=== PATIENT | female | born 1990 | race Caucasian/White ===

== ENCOUNTER 2017-11-05 12:10 | Inpatient (IN) | payer MEDICAID ==
[2017-11-05 12:42] LABS: % BASOPHILS 0.4 % (0.0-2.0); % EOSINOPHILS 0.8 % (0.0-5.0); % LYMPHOCYTES 13.9 % (20.0-50.0); % MONOCYTES 5.9 % (2.0-10.0); EOSINOPHILE ABSOLUTE 0.1 Th/cmm (0.1-0.4); HEMATOCRIT 35.5 % (41.0-60); HEMOGLOBIN 12.1 gm/dL (12-16); LYMPHOCYTE ABSOLUTE 1.5 Th/cmm (1.5-3.0); MEAN CORPUSCULAR HEMOGLOBIN 29.4 pg (27.0-31.0); MEAN CORPUSCULAR HGB CONC 34.2 pg (28.0-36.0); MEAN PLATELET VOLUME 8.5 fl; MONOCYTE ABSOLUTE 0.7 Th/cmm (0.3-1.0); NEUTROPHILE ABSOLUTE 8.8 Th/cmm (1.8-8.0); PLATELET COUNT 304 Th/cmm (150-400); RED BLOOD COUNT 4.13 Mil/cmm (3.80-5.10); RED CELL DISTRIBUTION WIDTH 13.1 % (11.5-20.0); WHITE BLOOD COUNT 11.1 Th/cmm (4.8-10.8)
[2017-11-05 13:06] LABS: ACETAMINOPHEN < 10.0 ug/mL (10.0-30.0); ALB/GLOB RATIO 1.8 (1.0-1.8); ALBUMIN 4.5 gm/dL (3.7-5.3); ALKALINE PHOSPHATASE 71 U/L (34-104); ANION GAP 9.4 (7.0-16.0); BILIRUBIN,TOTAL 0.4 mg/dL (0.3-1.0); BUN - UREA NITROGEN 5 mg/dL (7-25); CALCIUM SERUM 9.5 mg/dL (8.6-10.3); CARBON DIOXIDE 26.5 mEq/L (21.0-31.0); CHLORIDE 104 mEq/L (98-107); CREATININE - SERUM 0.6 mg/dL (0.6-1.2); GFR AFRICAN-AMERICAN > 60.0 ml/min (>90); GFR NON AFRICAN-AMERICAN > 60.0 ml/min; GLUCOSE 112 mg/dL (70-105); SALICYLATES (ASPIRIN) < 25.0 mg/L (30.0-100.0); SGOT 23 U/L (13-39); SGPT/ALT 30 U/L (7-52); SODIUM SERUM 137 mEq/L (136-145)
[2017-11-05 13:08] LABS: POTASSIUM SERUM 2.9 mEq/L (3.5-5.1)
--- NOTE | 2017-11-05 13:09 | ED Physician Chart ---
ED Chief Complaint/HPI - Patient Information Date Seen:: 11/05/17 Time Seen:: 11:45 Chief Complaint:: overdose History of Present Illness:: Patient seen shortly after her arrival. Patient's father called 911. An unknown time before arrival patient took an unknown number of her medications. She denies abdominal pain. Patient vomited a few times after taking the pills this morning and had a large volume emesis in the emergency department shortly after arrival. She states she has mild chest pain. Patient states that she sometimes hears voices. Sometimes the voices are people saying negative things about her. Allergies:: Allergies Allergy/AdvReac Type Severity Reaction Status Date / Time No Known Allergies Allergy Verified 11/05/17 12:42 Vitals:: Vital Signs - 8 hr 11/05/17 11/05/17 12:41 12:42 Temp 98 F 98.6 F HR 98 75 RR 16 16 BP 104/77 130/72 O2 Sat % 104 98 Historian:: Patient Review:: Nurse's Note Reviewed ED Review of Systems - Review of Systems General/Constitutional: No fever, No chills Skin: No skin lesions Head: No headache Eyes: No loss of vision ENT: No earache Neck: No neck pain Cardio Vascular: Chest pain Pulmonary: No SOB GI: No nausea, No vomiting, No diarrhea Musculoskeletal: No bone or joint pain Endocrine: No polyuria Psychiatric: Prior psych history, Depression, Suicidal ideation ED Past Medical History - Past Medical History Past Medical History: Other (depression; bipolar) Family History: Heart disease Social History: Smoker, No Alcohol, Lives With Parents Surgical History: None Psychiatricy History: Depression, Bipolar Medication: Reviewed Family Medical History - Family Member Mother History Unknown: Yes Ethnicity: Living Status: Still Living ED Physical Exam - Physical Examination General/Constitutional: Well-developed, well-nourished, Alert, No distress Head: Atraumatic Eyes: Lids, conjuctiva normal, PERRL Other Eyes comments:: Pupils about 3 mm Skin: Nl inspection, No rash, No skin lesions, No ecchymosis ENMT: External ears, nose nl, TM canals nl, Nasal exam nl, Lips, teeth, gums nl , Oropharynx nl, Tonsils nl Neck: No nuchal rigidity Respiratory: Nl effort/Exclusion, Clear to Auscultation, No Wheeze/Rhonchi/Rales Cardio Vascular: RRR, No murmur, gallop, rubs GI: No tenderness/rebounding/guarding, No organomegaly : No CVA tenderness Extremities: Normal digits & nails Neuro/Psych: Alert/oriented ED Labs/Radiology/EKG Results - Lab Results Results: Laboratory Tests 11/05/17 12:30 WBC 11.1 H RBC 4.13 Hgb 12.1 Hct 35.5 L MCV 86.0 MCH 29.4 MCHC Differential 34.2 RDW 13.1 Plt Count 304 MPV 8.5 Neutrophils % 79.0 Lymphocytes % 13.9 L Monocytes % 5.9 Eosinophils % 0.8 Basophils % 0.4 Laboratory Results - last 24 hr 11/05/17 11/05/17 11/05/17 12:30 12:30 12:30 WBC 11.1 H RBC 4.13 Hgb 12.1 Hct 35.5 L MCV 86.0 MCH 29.4 MCHC Differential 34.2 RDW 13.1 Plt Count 304 MPV 8.5 Neutrophils % 79.0 Lymphocytes % 13.9 L Monocytes % 5.9 Eosinophils % 0.8 Basophils % 0.4 Sodium 137 Potassium 2.9 L* Chloride 104 Carbon Dioxide 26.5 Anion Gap 9.4 BUN 5 L Creatinine 0.6 Est GFR ( Amer) > 60.0 Est GFR (Non-Af Amer) > 60.0 BUN/Creatinine Ratio 8.3 Glucose 112 H Calcium 9.5 Total Bilirubin 0.4 AST 23 ALT 30 Alkaline Phosphatase 71 Total Protein 7.0 Albumin 4.5 Globulin 2.5 Albumin/Globulin Ratio 1.8 Salicylates < 25.0 L Acetaminophen < 10.0 L Carbamazepine < 2.0 L Ethyl Alcohol < 10 - EKG Interpretations Rate & Rhythm: normal sinus rhythm with a rate of 66 [place]: normal Comments:: T wave changes ED Assessment - Assessment General Assessment: At 1424 patient had an apparent seizure. She was noted to be nonresponsive, slightly cyanotic, arms extended and drooling of a slight amount of blood tinged saliva. She was poorly responsive after the seizure. I spoke to Dr. Tejeda by phone who said he will admit the patient if Dr. Colorado can consult. Dr. Colorado said he can not see the patient until tomorrow afternoon or evening. I spoke to Dr. Tejeda again at about 1535 and he agreed to be the admitting physician. ED Septic Shock - . Is Septic Shock (SBP<90, OR Lactate>4 mmol\L) present?: No - <6hrs of presentation: Vital Signs: Vital Signs - 8 hr 11/05/17 11/05/17 12:41 12:42 Temp 98 F 98.6 F HR 98 75 RR 16 16 BP 104/77 130/72 O2 Sat % 104 98 ED Reassessment (Disposition) - Reassessment Reassessment Condition:: Unchanged - Diagnosis Diagnosis:: Medication overdose; hypokalemia; anemia; seizure - Patient Disposition Admitted to:: ICU Condition at Disposition:: Stable, Unchanged ED Discharge Plan - Patient Disposition Instructions: Psychosis
[2017-11-05] MEDS ORDERED: Potassium Chloride 20 mEq ER Tab PO ONE ×2 (13:14→13:50)
[2017-11-05] MEDS ORDERED: Levetiracetam 1000mg/100mL 1,000 MG/100 ML BAG IV ONE (15:15)
[2017-11-05] MEDS ORDERED: Levetiracetam 500 mg/5mL 5mL Vial IV ONE (15:19)
[2017-11-05 17:42] LABS: CANNABINOID THC POSITIVE (NEGATIVE)
[2017-11-05 17:43] LABS: AMPHETAMINE URINE NEGATIVE (NEGATIVE); BARBITURATES URINE NEGATIVE (NEGATIVE); BENZODIAZEPINES QUAL URINE POSITIVE (NEGATIVE); COCAINE METABOLITE QUAL URINE NEGATIVE (NEGATIVE); METHADONE URINE NEGATIVE (NEGATIVE); METHAMPHETAMINES QUAL URINE NEGATIVE (NEGATIVE); OPIATES (MORPHINE) QUAL. URINE NEGATIVE (NEGATIVE); PHENCYCLIDINE (PCP) URINE NEGATIVE (NEGATIVE); TRICYCLICS (TCA) QUAL. URINE NEGATIVE (NEGATIVE)
[2017-11-06] MEDS ORDERED: Haloperidol Lactate 5 mg/mL 1mL Vial IM ONE (03:19)
[2017-11-06 04:59] LABS: HEMATOCRIT 34.3 % (41.0-60); HEMOGLOBIN 11.6 gm/dL (12-16); MEAN CELL VOLUME 87.3 fl (81-100); MEAN CORPUSCULAR HEMOGLOBIN 29.5 pg (27.0-31.0); MEAN CORPUSCULAR HGB CONC 33.7 pg (28.0-36.0); MEAN PLATELET VOLUME 8.7 fl; PLATELET COUNT 256 Th/cmm (150-400); RED BLOOD COUNT 3.92 Mil/cmm (3.80-5.10)
[2017-11-06 05:05] LABS: WHITE BLOOD COUNT 13.6 Th/cmm (4.8-10.8)
[2017-11-06 05:20] LABS: ANION GAP 12.9 (7.0-16.0); BUN - UREA NITROGEN 7 mg/dL (7-25); CALCIUM SERUM 9.1 mg/dL (8.6-10.3); CARBON DIOXIDE 24.3 mEq/L (21.0-31.0); CHLORIDE 107 mEq/L (98-107); CREATININE - SERUM 0.7 mg/dL (0.6-1.2); GFR AFRICAN-AMERICAN > 60.0 ml/min (>90); GFR NON AFRICAN-AMERICAN > 60.0 ml/min; GLUCOSE 74 mg/dL (70-105); POTASSIUM SERUM 3.2 mEq/L (3.5-5.1); SODIUM SERUM 141 mEq/L (136-145)
[2017-11-06 05:50] LABS: MANUAL DIFF REQUIRED? YES
[2017-11-06 05:51] LABS: BAND NEUTROPHILE 2 % (0-10); LYMPHOCYTE 10 % (20-50); MONOCYTE 3 % (2-10); NEUTROPHILS 85 % (40-80); TOTAL CELLS COUNTED 100
[2017-11-06] MEDS ORDERED: Potassium Chloride 20 mEq ER Tab PO ONE (08:36)
--- NOTE | 2017-11-06 08:57 | Diagnostic Imaging Report ---
CT scan of the brain without contrast History: Seizure Total DLP equals 566 CTDI equals 32.2 Findings: Axial sections were obtained from the base of the skull to the vertex. There is a normal ventricular system size. No focal parenchymal lesions are seen. No evidence of any mass effect or shift of midline structures. No extra-axial masses or abnormal fluid collections. Impression: Negative examination.
--- NOTE | 2017-11-06 09:00 | History & Physical ---
ADMIT DATE: 11/05/2017 CHIEF COMPLAINT: Drug overdose. HISTORY OF PRESENT ILLNESS: This is a 27-year-old female with underlying history of mental and seizure disorders, was brought into the Emergency Room by paramedics for evaluation of the partial drug overdose. While the patient was being evaluated in the Emergency Room, had seizures. Per Emergency Room physician, the patient was on IV seizure medications . At the time of evaluation patient was more awake, alert, and able to communicate fine. The patient denies any chest pain. No shortness of breath or dizziness. No headache, no fever, no chills. The patient's family was available in the Emergency Room who are providing most of the history. Per family, the patient does have underlying history of seizures and takes seizure medications. The patient also had underlying somatic disorder, unknown about the proper diagnosis. The patient lives with father who called 911 after he saw the patient in altered mental status. PAST MEDICAL HISTORY: Seizure disorder, mental disorder. PAST SURGICAL HISTORY: None reported. SOCIAL HISTORY: Lives at home with father. Denies any alcohol or tobacco use. CURRENT MEDICATIONS: As per medication reconciliation. ALLERGIES: No known drug allergies. REVIEW OF SYSTEMS: As per HPI. A 12-point system review appears negative. PHYSICAL EXAMINATION: VITAL SIGNS: Temperature 98.6, pulse 75, respirations 16, blood 130/72, and 90% on room air. HEART: S1, S2 normal. LUNGS: Clear. ABDOMEN: Soft, nontender, no guarding. NEUROLOGIC: The patient is awake, alert, confused. Moves all extremities. Able to follow commands. AVAILABLE LABORATORY DATA: Reviewed. ASSESSMENT: 1. Seizure disorders. 2. Mental disorder. PLAN: The patient was on IV Keppra. Neurology was consulted. Seizure precautions was given. Admitted to ICU for close observation. Psych was consulted. Home medications were reconciled. Discussed with family regarding the patient's clinical condition and plan of care discussed with nursing staff. JOB# [id number]
--- NOTE | 2017-11-06 17:25 | General Progress Note ---
Subjective - Review of Systems Service Date: 11/06/17 Subjective: Patient seems very agitated Psych ordered prn restrains Sitter was at the bedside No reported seizure since am Objective - Results Result Diagrams: 11/06/17 04:30 11/06/17 04:30 Recent Labs: Laboratory Last Values WBC 13.6 Th/cmm (4.8-10.8) H D 11/06/17 04:30 RBC 3.92 Mil/cmm (3.80-5.10) 11/06/17 04:30 Hgb 11.6 gm/dL (12-16) L 11/06/17 04:30 Hct 34.3 % (41.0-60) L 11/06/17 04:30 MCV 87.3 fl (81-100) 11/06/17 04:30 MCH 29.5 pg (27.0-31.0) 11/06/17 04:30 MCHC Differential 33.7 pg (28.0-36.0) 11/06/17 04:30 RDW 13.0 % (11.5-20.0) 11/06/17 04:30 Plt Count 256 Th/cmm (150-400) 11/06/17 04:30 MPV 8.7 fl 11/06/17 04:30 Neutrophils % CHAR CONVEYOR TENDER CELLAR 11/06/17 04:30 Band Neutrophils % 2 % (0-10) 11/06/17 04:30 Lymphocytes % CHAR CONVEYOR T[employer]ER CELLAR 11/06/17 04:30 Monocytes % CHAR CONVEYOR TENDER CELLAR 11/06/17 04:30 Eosinophils % CHAR CONVEYOR TENDER CELLAR 11/06/17 04:30 Basophils % CHAR CONVEYOR TENDER CELLAR 11/06/17 04:30 Neutrophils (Manual) 85 % (40-80) H 11/06/17 04:30 Lymphocytes 10 % (20-50) L 11/06/17 04:30 Monocytes 3 % (2-10) 11/06/17 04:30 Sodium 141 mEq/L (136-145) 11/06/17 04:30 Potassium 3.2 mEq/L (3.5-5.1) L 11/06/17 04:30 Chloride 107 mEq/L (98-107) 11/06/17 04:30 Carbon Dioxide 24.3 mEq/L (21.0-31.0) 11/06/17 04:30 Anion Gap 12.9 (7.0-16.0) 11/06/17 04:30 BUN 7 mg/dL (7-25) 11/06/17 04:30 Creatinine 0.7 mg/dL (0.6-1.2) 11/06/17 04:30 Est GFR ( Amer) > 60.0 ml/min (>90) 11/06/17 04:30 Est GFR (Non-Af Amer) > 60.0 ml/min 11/06/17 04:30 BUN/Creatinine Ratio 10.0 11/06/17 04:30 Glucose 74 mg/dL (70-105) 11/06/17 04:30 Calcium 9.1 mg/dL (8.6-10.3) 11/06/17 04:30 Total Bilirubin 0.4 mg/dL (0.3-1.0) 11/05/17 12:30 AST 23 U/L (13-39) 11/05/17 12:30 ALT 30 U/L (7-52) 11/05/17 12:30 Alkaline Phosphatase 71 U/L (34-104) 11/05/17 12:30 Total Protein 7.0 gm/dL (6.0-8.3) 11/05/17 12:30 Albumin 4.5 gm/dL (3.7-5.3) 11/05/17 12:30 Globulin 2.5 gm/dL 11/05/17 12:30 Albumin/Globulin Ratio 1.8 (1.0-1.8) 11/05/17 12:30 Urine Test NEGATIVE 11/05/17 12:30 Salicylates < 25.0 mg/L (30.0-100.0) L 11/05/17 12:30 Urine Opiates Screen NEGATIVE (NEGATIVE) 11/05/17 16:40 Urine Methadone Screen NEGATIVE (NEGATIVE) 11/05/17 16:40 Acetaminophen < 10.0 ug/mL (10.0-30.0) L 11/05/17 12:30 Ur Barbiturates Screen NEGATIVE (NEGATIVE) 11/05/17 16:40 Carbamazepine < 2.0 ug/ml (4.0-12.0) L 11/05/17 12:30 Ur Tricyclics Screen NEGATIVE (NEGATIVE) 11/05/17 16:40 Ur Phencyclidine Scrn NEGATIVE (NEGATIVE) 11/05/17 16:40 Amphetamines Screen NEGATIVE (NEGATIVE) 11/05/17 16:40 U Methamphetamines Scrn NEGATIVE (NEGATIVE) 11/05/17 16:40 U Benzodiazepines Scrn POSITIVE (NEGATIVE) H 11/05/17 16:40 U Cocaine Metab Screen NEGATIVE (NEGATIVE) 11/05/17 16:40 U Cannabinoids Screen POSITIVE (NEGATIVE) H 11/05/17 16:40 Ethyl Alcohol < 10 mg/dL (0-10) 11/05/17 12:30 - Physical Exam Vitals and I&O: Vital Signs Temp 97.2 F 11/06/17 14:00 Pulse 84 11/06/17 15:00 Resp 21 11/06/17 15:00 BP 130/67 11/06/17 15:00 Pulse Ox 100 11/06/17 15:00 Intake & Output 11/05/17 11/06/17 11/06/17 18:59 06:59 18:59 Intake Total 250 Balance 250 Weight (lbs) 102.058 kg Intake: Oral 250 Active Medications: Current Medications Clonazepam (Klonopin) 0.5 mg PO BID [facility] Stop: 01/04/18 22:29 Last Admin: 11/06/17 09:31 Dose: 0.5 mg Levetiracetam (Keppra) 500 mg PO BID [facility] Stop: 01/05/18 08:59 Last Admin: 11/06/17 09:30 Dose: 500 mg Lorazepam (Ativan) 1 mg IVP Q4HR PRN; Protocol PRN Reason: Seizures Stop: 01/04/18 22:48 Oxcarbazepine (Trileptal) 600 mg PO BID [facility] Stop: 01/04/18 22:29 Last Admin: 11/06/17 11:37 Dose: 600 mg Cardiovascular: Regular rate Lungs: Clear to auscultation Assessment/Plan - Problem List Patient Problems: All Active Problems SUICIDAL IDEATION WITH MEDICATION EXCESS (Acute) - Assessment Assessment: Seizure Mental angelic disorder Hypokalemia - Plan Plan: Awaiting Neurology and Psych input Continue current treatment K replacement
--- NOTE | 2017-11-06 22:19 | Consultation ---
DATE OF CONSULTATION: 11/06/2017 HISTORY OF PRESENT ILLNESS: A 27-year-old female with history of mental illness. States she was depressed, fight with father, overdosed on tablets including Prozac, took an unknown number of medications. She has numerous medications. She had a large volume emesis in the Emergency Department, also attesting to voices and sometimes stating the voices say negative things about her. On [id number], the patient is asking to go home. She is a poor historian, seems to be responding somewhat to internal stimuli. PAST PSYCHIATRIC HISTORY: She states that she has attempted suicide in the past. PAST MEDICAL HISTORY: She is currently in the ICU. MEDICATIONS: Noted to include Prozac, BuSpar, Zyprexa. SOCIAL HISTORY: Living with father in [place]. Not . No kids, no drugs, no alcohol, no tobacco. MENTAL STATUS EXAMINATION: Unkempt, in restraints, stated age. Fair eye contact. Speech, decreased content. The patient is somewhat disorganized on exam, status post a suicide effort. No HI. No overt psychotic symptoms. Verbalize, although she does appear to be responding to internal stimuli, poor insight and judgment. PROVISIONAL DIAGNOSES: Mood, unspecified; rule out major depression versus bipolar affective disorder. Under medical it seems she has a seizure disorder. The patient is status post serious overdose effort. Under medical, please see full H and P. Dr. Tejeda is seeing this patient. Per the H and P, she had a partial drug overdose, seizure history. The details of the overdose are unclear. PLAN: We will hold all medications related to her overdose. It seems she overdosed on Prozac, possibly BuSpar, possibly Zyprexa. We will continue the seizure medications including Keppra. I am not sure if she is on Trileptal for seizures or for psych. However, it is unclear if she overdosed on these. It seems she may have overdosed on serotonergic agents only. We will also continue low dose Klonopin at 0.5 mg twice daily. We will hold for example, BuSpar, Prozac, and Zyprexa. Currently, the patient is on a 5150 hold, continue hold. [facility]# [id number]
[2017-11-07 10:45] LABS: % BASOPHILS 0.2 % (0.0-2.0); % EOSINOPHILS 0.9 % (0.0-5.0); % LYMPHOCYTES 8.7 % (20.0-50.0); % MONOCYTES 5.9 % (2.0-10.0); % NEUTROPHILS 84.3 % (40.0-80.0); EOSINOPHILE ABSOLUTE 0.1 Th/cmm (0.1-0.4); HEMATOCRIT 33.9 % (41.0-60); HEMOGLOBIN 11.3 gm/dL (12-16); LYMPHOCYTE ABSOLUTE 0.8 Th/cmm (1.5-3.0); MEAN CELL VOLUME 87.9 fl (81-100); MEAN CORPUSCULAR HEMOGLOBIN 29.4 pg (27.0-31.0); MEAN CORPUSCULAR HGB CONC 33.5 pg (28.0-36.0); MEAN PLATELET VOLUME 8.5 fl; MONOCYTE ABSOLUTE 0.6 Th/cmm (0.3-1.0); NEUTROPHILE ABSOLUTE 7.9 Th/cmm (1.8-8.0); PLATELET COUNT 232 Th/cmm (150-400); RED BLOOD COUNT 3.85 Mil/cmm (3.80-5.10); RED CELL DISTRIBUTION WIDTH 13.3 % (11.5-20.0)
[2017-11-07 10:47] LABS: WHITE BLOOD COUNT 9.4 Th/cmm (4.8-10.8)
[2017-11-07 10:55] LABS: ALB/GLOB RATIO 1.7 (1.0-1.8); ALKALINE PHOSPHATASE 65 U/L (34-104); ANION GAP 10.9 (7.0-16.0); BILIRUBIN,TOTAL 0.5 mg/dL (0.3-1.0); BUN - UREA NITROGEN 10 mg/dL (7-25); CALCIUM SERUM 9.1 mg/dL (8.6-10.3); CARBON DIOXIDE 26.4 mEq/L (21.0-31.0); CHLORIDE 103 mEq/L (98-107); CREATININE - SERUM 0.6 mg/dL (0.6-1.2); GFR AFRICAN-AMERICAN > 60.0 ml/min (>90); GFR NON AFRICAN-AMERICAN > 60.0 ml/min; GLUCOSE 85 mg/dL (70-105); MAGNESIUM 2.3 mg/dL (1.9-2.7); POTASSIUM SERUM 3.3 mEq/L (3.5-5.1); SGOT 42 U/L (13-39); SGPT/ALT 35 U/L (7-52); SODIUM SERUM 137 mEq/L (136-145); TOTAL PROTEIN,SERUM 6.3 gm/dL (6.0-8.3)
[2017-11-07 17:20] LABS: URINE MICROSCOPIC INDICATED? YES; URINE SOURCE FOLEY PORT
[2017-11-07 17:21] LABS: URINE BILIRUBIN SMALL (NEGATIVE); URINE BLOOD LARGE (NEGATIVE); URINE GLUCOSE (UA) NEGATIVE (NEGATIVE); URINE KETONE 15 mg/dL (NEGATIVE); URINE LEUKOCYTE ESTERASE NEGATIVE (NEGATIVE); URINE NITRATE POSITIVE (NEGATIVE); URINE PROTEIN 100 mg/dL (NEGATIVE)
[2017-11-07 17:31] LABS: URINE CLARITY HAZY (CLEAR); URINE COLOR DARK YELLOW
[2017-11-07 17:32] LABS: URINE BACTERIA MANY /hpf (NONE SEEN); URINE EPITHELIAL CELLS OCCASIONAL /lpf (FEW); URINE RBC 50-100 /hpf (0-5)
--- NOTE | 2017-11-07 21:35 | Consultation ---
DATE OF CONSULTATION: 11/07/2017 HISTORY OF PRESENT ILLNESS: A 27-year-old female with history of mental illness on multiple psychotropics, overdosed on multiple psychotropics, currently in the ICU, still somewhat disoriented, but more oriented versus yesterday. She knows her name. She knows she is in the hospital. She knows the year and the month. She has a general idea why she is here, still in restraints, still agitated, still seems to be responding to internal stimuli. PAST PSYCHIATRIC HISTORY: Status post suicide effort. MENTAL STATUS EXAMINATION: Unkempt, in restraints, better oriented, status post suicide effort, seems to be responding to internal stimuli. PROVISIONAL DIAGNOSES: Mood, unspecified; major depression versus bipolar. RECOMMENDATIONS AND PLAN: Continue to hold all medications. We will initiate a 14-day hold. JOB# [id number]
--- NOTE | 2017-11-07 21:54 | Consultation ---
DATE OF CONSULTATION: 11/07/2017 NEUROLOGY CONSULT HISTORY OF PRESENT ILLNESS: A 27-year-old female. The patient with history of seizure. The patient at the moment on Keppra and oxcarbazepine. No seizures while here. The patient also at home overdosed on tablets. The patient seen by psychiatrist. PAST MEDICAL HISTORY: 1. Depression. 2. Question of bipolar. 3. History of seizure. REVIEW OF SYSTEMS: On questioning her, no headache. The patient is somewhat confused at times, but able to answer questions. No chest pain. No shortness of breath. SOCIAL HISTORY: She lives with her father in . She said she does not smoke or drink. No drugs. PHYSICAL EXAMINATION: VITAL SIGNS: Temperature 98.4, blood pressure 130/70, pulse is 76. NECK: Supple. No bruits. HEART: Sounds S1, S2. LUNGS: Clear. NEUROLOGIC: The patient is awake, alert. She answers questions. She was able to tell me where she lives. She is able to name simple objects. She knew what day, what month. CRANIAL: Pupils react to light. Full eye movement. No facial weakness. MOTOR: She will lift both arms up. Legs equal. Reflex is 1+. INVESTIGATIONS: CT scan of the head is negative. IMPRESSION: 1. Seizure. Continue present medications. 2. History of depression, bipolar. 3. Overdose. The patient's management as per Psychiatry. Neurology is clear to transfer to a psychiatric facility. JOB# [id number]
[2017-11-08] MEDS: Potassium Chloride Elixir 20 mEq /15 mL UDC GT SCH (09:36)
--- NOTE | 2017-11-08 22:51 | Progress Notes ---
DATE: 11/08/2017 SUBJECTIVE: A 27-year-old female, overdosed on medications, currently seems more stable, out of the ICU, on the Med-Surg unit. The patient notes her mood is "better," sleeping well, and eating well. Some hallucinations noted. She has been verbalizing with staff. She is currently on Trileptal and Keppra. She had been on Zyprexa, Klonopin, and Prozac previously. No SI and no HI. MENTAL STATUS EXAMINATION: More engaged, fairly linear. No SI, no HI. She seems to be having some perceptual disturbances. PROVISIONAL DIAGNOSIS: Bipolar. RECOMMENDATIONS AND PLAN: The patient remains on a hold. We will restart medications. [facility]# [id number]
[2017-11-09 05:28] LABS: % BASOPHILS 0.7 % (0.0-2.0); % EOSINOPHILS 5.1 % (0.0-5.0); % LYMPHOCYTES 21.5 % (20.0-50.0); % MONOCYTES 6.9 % (2.0-10.0); % NEUTROPHILS 65.8 % (40.0-80.0); EOSINOPHILE ABSOLUTE 0.3 Th/cmm (0.1-0.4); HEMATOCRIT 36.3 % (41.0-60); HEMOGLOBIN 12.1 gm/dL (12-16); LYMPHOCYTE ABSOLUTE 1.4 Th/cmm (1.5-3.0); MEAN CELL VOLUME 87.3 fl (81-100); MEAN CORPUSCULAR HEMOGLOBIN 29.2 pg (27.0-31.0); MEAN CORPUSCULAR HGB CONC 33.4 pg (28.0-36.0); MEAN PLATELET VOLUME 8.3 fl; MONOCYTE ABSOLUTE 0.5 Th/cmm (0.3-1.0); NEUTROPHILE ABSOLUTE 4.5 Th/cmm (1.8-8.0); PLATELET COUNT 254 Th/cmm (150-400); RED BLOOD COUNT 4.16 Mil/cmm (3.80-5.10); RED CELL DISTRIBUTION WIDTH 13.3 % (11.5-20.0)
[2017-11-09 05:29] LABS: WHITE BLOOD COUNT 6.7 Th/cmm (4.8-10.8)
[2017-11-09 05:47] LABS: ALB/GLOB RATIO 1.5 (1.0-1.8); ALBUMIN 3.8 gm/dL (3.7-5.3); ALKALINE PHOSPHATASE 61 U/L (34-104); ANION GAP 8.8 (7.0-16.0); BILIRUBIN,TOTAL 0.5 mg/dL (0.3-1.0); BUN - UREA NITROGEN 8 mg/dL (7-25); CALCIUM SERUM 9.1 mg/dL (8.6-10.3); CARBON DIOXIDE 27.9 mEq/L (21.0-31.0); CHLORIDE 101 mEq/L (98-107); CREATININE - SERUM 0.5 mg/dL (0.6-1.2); GFR AFRICAN-AMERICAN > 60.0 ml/min (>90); GFR NON AFRICAN-AMERICAN > 60.0 ml/min; GLUCOSE 80 mg/dL (70-105); POTASSIUM SERUM 3.7 mEq/L (3.5-5.1); SGOT 24 U/L (13-39); SGPT/ALT 30 U/L (7-52); SODIUM SERUM 134 mEq/L (136-145); TOTAL PROTEIN,SERUM 6.3 gm/dL (6.0-8.3)
[2017-11-09] MEDS: Potassium Chloride Elixir 20 mEq /15 mL UDC GT SCH (09:40)
--- NOTE | 2017-11-09 09:44 | Progress Notes ---
DATE: 11/09/2017 The patient seems to be doing better, more interactive, sleeping well, eating well, denying any SI, no HI. No hallucinations answering questions more appropriately. She is back on her medications, no side effects calm and cooperative. Mental status examination more engaged, linear. No SI, no HI. No hallucinations noted. PROVISIONAL DIAGNOSIS: Bipolar. RECOMMENDATIONS: Continue medications at current dose. Currently pending psychosocial evaluation and confirmation of placements. [facility]# [id number]
[2017-11-10] MEDS: Potassium Chloride Elixir 20 mEq /15 mL UDC GT SCH (08:25)
--- NOTE | 2017-11-10 13:27 | General Progress Note ---
Subjective - Review of Systems Service Date: 11/10/17 Subjective: Patient seems more calm and co operative Denied any complaints Objective - Results Result Diagrams: 11/09/17 05:00 11/09/17 05:00 Recent Labs: Laboratory Last Values WBC 6.7 Th/cmm (4.8-10.8) D 11/09/17 05:00 RBC 4.16 Mil/cmm (3.80-5.10) 11/09/17 05:00 Hgb 12.1 gm/dL (12-16) 11/09/17 05:00 Hct 36.3 % (41.0-60) L 11/09/17 05:00 MCV 87.3 fl (81-100) 11/09/17 05:00 MCH 29.2 pg (27.0-31.0) 11/09/17 05:00 MCHC Differential 33.4 pg (28.0-36.0) 11/09/17 05:00 RDW 13.3 % (11.5-20.0) 11/09/17 05:00 Plt Count 254 Th/cmm (150-400) 11/09/17 05:00 MPV 8.3 fl 11/09/17 05:00 Neutrophils % 65.8 % (40.0-80.0) 11/09/17 05:00 Band Neutrophils % 2 % (0-10) 11/06/17 04:30 Lymphocytes % 21.5 % (20.0-50.0) 11/09/17 05:00 Monocytes % 6.9 % (2.0-10.0) 11/09/17 05:00 Eosinophils % 5.1 % (0.0-5.0) H 11/09/17 05:00 Basophils % 0.7 % (0.0-2.0) 11/09/17 05:00 Neutrophils (Manual) 85 % (40-80) H 11/06/17 04:30 Lymphocytes 10 % (20-50) L 11/06/17 04:30 Monocytes 3 % (2-10) 11/06/17 04:30 Sodium 134 mEq/L (136-145) L 11/09/17 05:00 Potassium 3.7 mEq/L (3.5-5.1) 11/09/17 05:00 Chloride 101 mEq/L (98-107) 11/09/17 05:00 Carbon Dioxide 27.9 mEq/L (21.0-31.0) 11/09/17 05:00 Anion Gap 8.8 (7.0-16.0) 11/09/17 05:00 BUN 8 mg/dL (7-25) 11/09/17 05:00 Creatinine 0.5 mg/dL (0.6-1.2) L 11/09/17 05:00 Est GFR ( Amer) > 60.0 ml/min (>90) 11/09/17 05:00 Est GFR (Non-Af Amer) > 60.0 ml/min 11/09/17 05:00 BUN/Creatinine Ratio 16.0 11/09/17 05:00 Glucose 80 mg/dL (70-105) 11/09/17 05:00 Calcium 9.1 mg/dL (8.6-10.3) 11/09/17 05:00 Magnesium 2.3 mg/dL (1.9-2.7) 11/07/17 10:30 Total Bilirubin 0.5 mg/dL (0.3-1.0) 11/09/17 05:00 AST 24 U/L (13-39) 11/09/17 05:00 ALT 30 U/L (7-52) 11/09/17 05:00 Alkaline Phosphatase 61 U/L (34-104) 11/09/17 05:00 Total Protein 6.3 gm/dL (6.0-8.3) 11/09/17 05:00 Albumin 3.8 gm/dL (3.7-5.3) 11/09/17 05:00 Globulin 2.5 gm/dL 11/09/17 05:00 Albumin/Globulin Ratio 1.5 (1.0-1.8) 11/09/17 05:00 Urine Source [place] 11/07/17 15:55 Urine Color DARK YELLOW 11/07/17 15:55 Urine Clarity HAZY (CLEAR) 11/07/17 15:55 Urine pH 6.0 (4.6 - 8.0) 11/07/17 15:55 Ur Specific [place] >= 1.030 (1.005-1.030) 11/07/17 15:55 Urine Protein 100 mg/dL (NEGATIVE) H 11/07/17 15:55 Urine Glucose (UA) NEGATIVE mg/dL (NEGATIVE) 11/07/17 15:55 Urine Ketones 15 mg/dL (NEGATIVE) H 11/07/17 15:55 Urine Blood LARGE (NEGATIVE) H 11/07/17 15:55 Urine Nitrate POSITIVE (NEGATIVE) H 11/07/17 15:55 Urine Bilirubin SMALL (NEGATIVE) H 11/07/17 15:55 Urine Urobilinogen 2.0 E.U./dL (0.2 - 1.0) 11/07/17 15:55 Ur Leukocyte Esterase NEGATIVE (NEGATIVE) 11/07/17 15:55 Urine RBC 50-100 /hpf (0-5) H 11/07/17 15:55 Urine WBC 2-5 /hpf (0-5) 11/07/17 15:55 Ur Epithelial Cells OCCASIONAL /lpf (FEW) 11/07/17 15:55 Urine Bacteria MANY /hpf (NONE SEEN) H 11/07/17 15:55 Urine Test NEGATIVE 11/05/17 12:30 Salicylates < 25.0 mg/L (30.0-100.0) L 11/05/17 12:30 Urine Opiates Screen NEGATIVE (NEGATIVE) 11/05/17 16:40 Urine Methadone Screen NEGATIVE (NEGATIVE) 11/05/17 16:40 Acetaminophen < 10.0 ug/mL (10.0-30.0) L 11/05/17 12:30 Ur Barbiturates Screen NEGATIVE (NEGATIVE) 11/05/17 16:40 Carbamazepine < 2.0 ug/ml (4.0-12.0) L 11/05/17 12:30 Ur Tricyclics Screen NEGATIVE (NEGATIVE) 11/05/17 16:40 Ur Phencyclidine Scrn NEGATIVE (NEGATIVE) 11/05/17 16:40 Amphetamines Screen NEGATIVE (NEGATIVE) 11/05/17 16:40 U Methamphetamines Scrn NEGATIVE (NEGATIVE) 11/05/17 16:40 U Benzodiazepines Scrn POSITIVE (NEGATIVE) H 11/05/17 16:40 U Cocaine Metab Screen NEGATIVE (NEGATIVE) 11/05/17 16:40 U Cannabinoids Screen POSITIVE (NEGATIVE) H 11/05/17 16:40 Ethyl Alcohol < 10 mg/dL (0-10) 11/05/17 12:30 - Physical Exam Vitals and I&O: Vital Signs Temp 97.4 F 11/10/17 12:00 Pulse 78 11/10/17 12:00 Resp 20 11/10/17 12:00 BP 120/63 11/10/17 12:00 Pulse Ox 99 11/10/17 12:00 Intake & Output 11/09/17 11/10/17 11/10/17 18:59 06:59 18:59 Intake Total 1999 Balance 1999 Weight (lbs) 104.553 kg Intake: Oral 1999 Other: # Voids 3 # Bowel Movements 1 Active Medications: Current Medications Clonazepam (Klonopin) 0.5 mg PO BID JOHN PRN Reason: Protocol Stop: 01/07/18 08:59 Last Admin: 11/10/17 08:26 Dose: 0.5 mg Fluoxetine HCl (Prozac) 10 mg PO DAILY JOHN PRN Reason: Protocol Stop: 01/07/18 08:59 Last Admin: 11/10/17 08:26 Dose: 10 mg Levetiracetam (Keppra) 500 mg PO BID JOHN Stop: 01/05/18 08:59 Last Admin: 11/10/17 08:26 Dose: 500 mg Levofloxacin (Levaquin) 250 mg PO DAILY JOHN Stop: 01/07/18 09:14 Last Admin: 11/10/17 08:26 Dose: 250 mg Lorazepam (Ativan) 1 mg IVP Q4HR PRN; Protocol PRN Reason: Seizures Stop: 01/04/18 22:48 Last Admin: 11/09/17 12:40 Dose: 1 mg Olanzapine (Zyprexa) 10 mg PO HS JOHN PRN Reason: Protocol Stop: 01/07/18 20:59 Last Admin: 11/09/17 21:04 Dose: 10 mg Oxcarbazepine (Trileptal) 600 mg PO BID JOHN Stop: 01/04/18 22:29 Last Admin: 11/10/17 08:25 Dose: 600 mg Potassium Chloride (Potassium Chloride Elixir) 20 meq GT DAILY JOHN Stop: 01/07/18 09:14 Last Admin: 11/10/17 08:25 Dose: 20 meq Cardiovascular: Regular rate Lungs: Clear to auscultation Assessment/Plan - Problem List Patient Problems: All Active Problems SUICIDAL IDEATION WITH MEDICATION EXCESS (Acute) - Assessment Assessment: Seizure Mental angelic disorder - Plan Plan: Continue current treatment No reported seizure Medically cleared for [facility] facility transfer [facility]waiting [facility] facility approval
[2017-11-10] MEDS ORDERED: Probiotic Screen MC PRN (17:45)
[2017-11-11] MEDS: Lactobacillus Rhamnosus GG 15 Billion CFU CAP.SPRINK PO SCH (08:47)
[2017-11-11] MEDS: Potassium Chloride Elixir 20 mEq /15 mL UDC GT SCH (08:48)
--- NOTE | 2017-11-11 16:03 | General Progress Note ---
Subjective - Review of Systems Events since last encounter: Patient doing fine no reported seizure Subjective: Patient seems more calm and co operative Denied any complaints Objective - Results Result Diagrams: 11/09/17 05:00 11/09/17 05:00 Recent Labs: Laboratory Last Values WBC 6.7 Th/cmm (4.8-10.8) D 11/09/17 05:00 RBC 4.16 Mil/cmm (3.80-5.10) 11/09/17 05:00 Hgb 12.1 gm/dL (12-16) 11/09/17 05:00 Hct 36.3 % (41.0-60) L 11/09/17 05:00 MCV 87.3 fl (81-100) 11/09/17 05:00 MCH 29.2 pg (27.0-31.0) 11/09/17 05:00 MCHC Differential 33.4 pg (28.0-36.0) 11/09/17 05:00 RDW 13.3 % (11.5-20.0) 11/09/17 05:00 Plt Count 254 Th/cmm (150-400) 11/09/17 05:00 MPV 8.3 fl 11/09/17 05:00 Neutrophils % 65.8 % (40.0-80.0) 11/09/17 05:00 Band Neutrophils % 2 % (0-10) 11/06/17 04:30 Lymphocytes % 21.5 % (20.0-50.0) 11/09/17 05:00 Monocytes % 6.9 % (2.0-10.0) 11/09/17 05:00 Eosinophils % 5.1 % (0.0-5.0) H 11/09/17 05:00 Basophils % 0.7 % (0.0-2.0) 11/09/17 05:00 Neutrophils (Manual) 85 % (40-80) H 11/06/17 04:30 Lymphocytes 10 % (20-50) L 11/06/17 04:30 Monocytes 3 % (2-10) 11/06/17 04:30 Sodium 134 mEq/L (136-145) L 11/09/17 05:00 Potassium 3.7 mEq/L (3.5-5.1) 11/09/17 05:00 Chloride 101 mEq/L (98-107) 11/09/17 05:00 Carbon Dioxide 27.9 mEq/L (21.0-31.0) 11/09/17 05:00 Anion Gap 8.8 (7.0-16.0) 11/09/17 05:00 BUN 8 mg/dL (7-25) 11/09/17 05:00 Creatinine 0.5 mg/dL (0.6-1.2) L 11/09/17 05:00 Est GFR ( Amer) > 60.0 ml/min (>90) 11/09/17 05:00 Est GFR (Non-Af Amer) > 60.0 ml/min 11/09/17 05:00 BUN/Creatinine Ratio 16.0 11/09/17 05:00 Glucose 80 mg/dL (70-105) 11/09/17 05:00 Calcium 9.1 mg/dL (8.6-10.3) 11/09/17 05:00 Magnesium 2.3 mg/dL (1.9-2.7) 11/07/17 10:30 Total Bilirubin 0.5 mg/dL (0.3-1.0) 11/09/17 05:00 AST 24 U/L (13-39) 11/09/17 05:00 ALT 30 U/L (7-52) 11/09/17 05:00 Alkaline Phosphatase 61 U/L (34-104) 11/09/17 05:00 Total Protein 6.3 gm/dL (6.0-8.3) 11/09/17 05:00 Albumin 3.8 gm/dL (3.7-5.3) 11/09/17 05:00 Globulin 2.5 gm/dL 11/09/17 05:00 Albumin/Globulin Ratio 1.5 (1.0-1.8) 11/09/17 05:00 Urine Source [place] 11/07/17 15:55 Urine Color DARK YELLOW 11/07/17 15:55 Urine Clarity HAZY (CLEAR) 11/07/17 15:55 Urine pH 6.0 (4.6 - 8.0) 11/07/17 15:55 Ur Specific [place] >= 1.030 (1.005-1.030) 11/07/17 15:55 Urine Protein 100 mg/dL (NEGATIVE) H 11/07/17 15:55 Urine Glucose (UA) NEGATIVE mg/dL (NEGATIVE) 11/07/17 15:55 Urine Ketones 15 mg/dL (NEGATIVE) H 11/07/17 15:55 Urine Blood LARGE (NEGATIVE) H 11/07/17 15:55 Urine Nitrate POSITIVE (NEGATIVE) H 11/07/17 15:55 Urine Bilirubin SMALL (NEGATIVE) H 11/07/17 15:55 Urine Urobilinogen 2.0 E.U./dL (0.2 - 1.0) 11/07/17 15:55 Ur Leukocyte Esterase NEGATIVE (NEGATIVE) 11/07/17 15:55 Urine RBC 50-100 /hpf (0-5) H 11/07/17 15:55 Urine WBC 2-5 /hpf (0-5) 11/07/17 15:55 Ur Epithelial Cells OCCASIONAL /lpf (FEW) 11/07/17 15:55 Urine Bacteria MANY /hpf (NONE SEEN) H 11/07/17 15:55 Urine Test NEGATIVE 11/05/17 12:30 Salicylates < 25.0 mg/L (30.0-100.0) L 11/05/17 12:30 Urine Opiates Screen NEGATIVE (NEGATIVE) 11/05/17 16:40 Urine Methadone Screen NEGATIVE (NEGATIVE) 11/05/17 16:40 Acetaminophen < 10.0 ug/mL (10.0-30.0) L 11/05/17 12:30 Ur Barbiturates Screen NEGATIVE (NEGATIVE) 11/05/17 16:40 Carbamazepine < 2.0 ug/ml (4.0-12.0) L 11/05/17 12:30 Ur Tricyclics Screen NEGATIVE (NEGATIVE) 11/05/17 16:40 Ur Phencyclidine Scrn NEGATIVE (NEGATIVE) 11/05/17 16:40 Amphetamines Screen NEGATIVE (NEGATIVE) 11/05/17 16:40 U Methamphetamines Scrn NEGATIVE (NEGATIVE) 11/05/17 16:40 U Benzodiazepines Scrn POSITIVE (NEGATIVE) H 11/05/17 16:40 U Cocaine Metab Screen NEGATIVE (NEGATIVE) 11/05/17 16:40 U Cannabinoids Screen POSITIVE (NEGATIVE) H 11/05/17 16:40 Ethyl Alcohol < 10 mg/dL (0-10) 11/05/17 12:30 - Physical Exam Vitals and I&O: Vital Signs Temp 98.6 F 11/11/17 08:00 Pulse 90 11/11/17 08:00 Resp 18 11/11/17 12:00 BP 120/76 11/11/17 08:00 Pulse Ox 95 11/11/17 08:00 Intake & Output 11/10/17 11/11/17 11/11/17 18:59 06:59 18:59 Weight (lbs) 104.326 kg 104.326 kg Other: # Voids 4 2 # Bowel Movements 0 Active Medications: Current Medications Clonazepam (Klonopin) 0.5 mg PO BID JOHN PRN Reason: Protocol Stop: 01/07/18 08:59 Last Admin: 11/11/17 08:47 Dose: 0.5 mg Fluoxetine HCl (Prozac) 10 mg PO DAILY JOHN PRN Reason: Protocol Stop: 01/07/18 08:59 Last Admin: 11/11/17 08:47 Dose: 10 mg Lactobacillus Rhamnosus (Culturelle 15b) 1 each PO DAILY JOHN Stop: 01/10/18 08:59 Last Admin: 11/11/17 08:47 Dose: 1 each Levetiracetam (Keppra) 500 mg PO BID JOHN Stop: 01/05/18 08:59 Last Admin: 11/11/17 08:47 Dose: 500 mg Levofloxacin (Levaquin) 250 mg PO DAILY JOHN Stop: 01/07/18 09:14 Last Admin: 11/11/17 08:47 Dose: 250 mg Lorazepam (Ativan) 1 mg IVP Q4HR PRN; Protocol PRN Reason: Seizures Stop: 01/04/18 22:48 Last Admin: 11/09/17 12:40 Dose: 1 mg Miscellaneous (Probiotic Screen) 1 ea MC PRN PRN PRN Reason: PROTOCOL Stop: 01/09/18 17:44 Olanzapine (Zyprexa) 10 mg PO HS JOHN PRN Reason: Protocol Stop: 01/07/18 20:59 Last Admin: 11/10/17 20:34 Dose: 10 mg Oxcarbazepine (Trileptal) 600 mg PO BID JOHN Stop: 01/04/18 22:29 Last Admin: 11/11/17 08:48 Dose: 600 mg Potassium Chloride (Potassium Chloride Elixir) 20 meq GT DAILY JOHN Stop: 01/07/18 09:14 Last Admin: 11/11/17 08:48 Dose: 20 meq Cardiovascular: Regular rate Lungs: Clear to auscultation Assessment/Plan - Problem List Patient Problems: All Active Problems SUICIDAL IDEATION WITH MEDICATION EXCESS (Acute) - Assessment Assessment: Seizure Mental angelic disorder - Plan Plan: Continue current treatment No reported seizure Medically cleared for [facility] facility transfer Awaiting [facility] facility approval
[2017-11-12] MEDS: Potassium Chloride Elixir 20 mEq /15 mL UDC GT SCH (08:30)
[2017-11-12] MEDS: Lactobacillus Rhamnosus GG 15 Billion CFU CAP.SPRINK PO SCH (08:32)
--- NOTE | 2017-12-15 18:18 | Discharge Summary ---
DATE OF DISCHARGE: 11/12/2017 FINAL DIAGNOSES: 1. Seizure disorder, stable. 2. Mental disorders. 3. Drug overdose. HOSPITAL COURSE: This is a 27-year-old female who admitted for evaluation of drug overdose and was admitted to ICU, also put on seizure precaution, antinausea medications. Neurology was consulted. Head CT was negative for any significant findings which appeared due to underlying mental disorder, severe disturbances. Psych was consulted. Psych evaluated the patient, recommended inpatient psych transfer. [employer] project manager was consulted. The patient was cleared for inpatient psych, transferred by Neurologist. Overall hospitalization was uneventful. DISCHARGE CONDITION: Stable. DISCHARGE MEDICATIONS: Please see medication reconciliation. DISCHARGE FOLLOWUP: Followed by psychiatrist in Inpatient Psych Unit. JOB# [id number]
== END 2017-11-12 15:20 | DRG 812 ==
LOC: ER 12:10 → ICU 19:00 → TELE 11-07 12:24
PROVIDERS: ADMIT Family Medicine; ATTEND Family Medicine
DX: T43.221A Poisoning by selective serotonin reuptake inhibitors, accidental (unintentional), initial encounter (principal); F31.9 Bipolar disorder, unspecified; D64.9 Anemia, unspecified; Y92.89 Other specified places as the place of occurrence of the external cause; G40.909 Epilepsy, unspecified, not intractable, without status epilepticus; E87.6 Hypokalemia; F17.210 Nicotine dependence, cigarettes, uncomplicated; F99 Mental disorder, not otherwise specified; F39 Unspecified mood [affective] disorder
CPT/HCPCS: 36415-UA; 70450-TC; 80048-TC; 80053-TC; 80156-TC; 80307; 80320-TC; 80329-TC; 81001-TC; 81025-TC; 83735-TC; 85007-TC; 85025-TC; 85027-TC; 87086-90; 93005; J1200; J1630; J1953; J2060; J7040; J7051; Z7610